=== PATIENT | male | born 1945 | race Hispanic/Latino ===

== ENCOUNTER 2017-12-17 08:58 | Day surgery (SDC) | payer MEDICARE ==
[2017-12-16 13:44] VITALS: BMI 41.2
[2017-12-17 09:43] LABS: BASO # 0.05 K/mm3 (0.0-2.0); BASO % 0.6 % (0.0-3.0); EOS # 0.3 (0.0-0.7); EOS % 4.1 % (1.5-5.0); GRAN # 5.87 (1.4-6.5); GRAN % 72.7 % (50.0-68.0); HEMOGLOBIN 14.6 g/dL (14.0-18.0); LYMPH # 1.1 (1.2-3.4); LYMPH % 13.2 % (22.0-35.0); MEAN CELL VOLUME 94.5 fl (80.0-105.0); MEAN CORPUSCULAR HGB CONC 32.8 g/dl (31.0-37.0); MEAN PLATELET VOLUME 10.1 fl (7.0-11.0); MONO # 0.8 (0.1-0.6); MONO % 9.4 % (1.0-6.0); RBC 4.71 10^6/uL (3.5-6.1); RED CELL DISTRIBUTION WIDTH 13.5 % (11.5-14.5); WHITE BLOOD COUNT 8.1 10^3/ul (4.5-11.0)
[2017-12-17 09:55] LABS: BLOOD UREA NITROGEN 16 mg/dL (7-21); CALCIUM 9.3 mg/dL (8.4-10.5); GFR AFRICAN-AMERICAN > 60; GFR NON-AFRICAN AMERICAN > 60
[2017-12-17 09:59] LABS: INR 1.03 (0.93-1.08); PARTIAL THROMBOPLASTIN TIME 30.7 Seconds (25.1-36.5); PROTHROMBIN TIME 11.8 SECONDS (9.4-12.5)
[2017-12-17] MEDS ORDERED: Lidocaine 2% Inj (20ml) ONE (10:34)
[2017-12-17] MEDS ORDERED: Phenylephrine 10 mg/ml Inj ONE (10:35)
[2017-12-17] MEDS ORDERED: Midazolam 2 MG/2 ML VIAL ONE ×2 (10:36→12:09)
[2017-12-17] MEDS ORDERED: Iodixanol 320 MG/ML 200 ML BOTTLE IV ONE (10:38)
[2017-12-17] MEDS ORDERED: HEPARIN SODIUM/NS 2,000 ML IV ONE (10:38)
[2017-12-17] MEDS ORDERED: Nitroglycerin 50mg in D5W 50 MG/250 ML BOTTLE IV ONE (10:38)
[2017-12-17] MEDS ORDERED: Iodixanol 320 MG/ML 100 ML BOTTLE IV ONE ×2 (10:38→12:46)
[2017-12-17] MEDS ORDERED: Iohexol 350mgl/ml 50 ML ONE (10:38)
[2017-12-17] MEDS ORDERED: Sodium Chloride 0.9% 1,000 ML IV SCH (13:45)
--- NOTE | 2017-12-17 16:55 | CARD ---
APPROVED REPORT EKG Measurement Heart [id number] [place] 204P32 [id number] <Conclusion> Normal sinus rhythm with sinus arrhythmia Anterior infarct, age undetermined Abnormal ECG
--- NOTE | 2017-12-17 17:26 | CARD ---
APPROVED REPORT EKG Measurement Heart [id number] [place] 188P2 [id number] <Conclusion> Normal sinus rhythm Anterolateral infarct, age undetermined Abnormal ECG
--- NOTE | 2017-12-17 23:40 | HP ---
HISTORY OF PRESENT ILLNESS: The patient is a 72 year old man with a past medical history of CAD, hypertension, hyperlipidemia and TAVR who presented for electively scheduled cardiac catheterization after undergoing an abnormal nuclear stress test performed for evaluation of angina. The patient was taken to the cardiac catheterization lab by Dr. Quigley where he underwent successful placement of drug- eluting stent to the proximal LAD lesion. The patient tolerated the procedure without difficulties and was subsequently transferred to the telemetry ayala for continued post cardiac catheterization care. PAST MEDICAL HISTORY: As per HPI. PAST SURGICAL HISTORY: As per HPI. MEDICATIONS: Lipitor 40 mg p.o. daily, Lopressor 25 mg p.o. b.i.d., Metformin 500 mg p.o. b.i.d., Lisinopril/HCTZ 20/12.5 mg p.o. daily, Plavix 75 mg p.o. daily, Aspirin 81 mg p.o. daily and Paxil 20 mg p.o. daily. ALLERGIES: NO KNOWN DRUG ALLERGIES. FAMILY HISTORY: Significant for hypertension and hyperlipidemia. SOCIAL HISTORY: The patient reports a former 40-pack year smoking history. He reports social alcohol use and denies illicit drug abuse. REVIEW OF SYSTEMS: A 14-point review of systems is negative except as per HPI. PHYSICAL EXAMINATION: VITAL SIGNS: Temperature 98.3, pulse 86, blood pressure 144/76, respiratory rate 18 and oxygen saturation 93% on room air. GENERAL: Morbidly obese man, lying in bed, in no apparent distress. HEENT: PERRL. EOMI. No scleral icterus. No conjunctival pallor. NECK: No JVD. No bruits. LUNGS: Clear to auscultation. CARDIOVASCULAR: Regular rate and rhythm. Normal S1 and S2. ABDOMEN: Obese. Normoactive bowel sounds. Soft, nontender and nondistended. EXTREMITIES: No edema. NEUROLOGIC: Awake, alert, and oriented x3. No focal motor deficits. LABORATORY DATA: CBC reviewed and unremarkable. CMP reviewed and unremarkable. ASSESSMENT: The patient is a 72 year old man with multiple medical comorbidities including CAD, hypertension, hyperlipidemia and history of TAVR who presented for electively scheduled cardiac catheterization after undergoing an abnormal nuclear stress test as part of a workup for angina. PLAN: 1. CAD s/p PCI with KRISTEN stent placement x 2. Input from Dr. Quigley noted and greatly appreciated. Continue with post cardiac catheterization care as per Dr. Quigley. Resume aspirin 81 mg p.o. daily, Lipitor 40 mg p.o. daily, metoprolol 25 mg p.o. b.i.d., and Plavix 75 mg p.o. daily. 2. Hypertension, blood pressure controlled. Continue with current medications. 3. Hyperlipidemia. Continue Lipitor 40 mg p.o. daily. 4. Aortic stenosis s/p TAVR. 5. Prophylaxis: GI prophylaxis not indicated as the patient is eating. Continue with SCDs for deep vein thrombosis prophylaxis. CODE STATUS: Full code. Fabricio Spencer MD MTDD
[2017-12-18 00:17] VITALS: RESP 20; O2SAT 96
[2017-12-18 07:22] LABS: BASO # 0.02 K/mm3 (0.0-2.0); BASO % 0.3 % (0.0-3.0); EOS # 0.2 (0.0-0.7); GRAN # 5.54 (1.4-6.5); HEMOGLOBIN 14.3 g/dL (14.0-18.0); LYMPH # 1.2 (1.2-3.4); MEAN CELL VOLUME 92.9 fl (80.0-105.0); MEAN CORPUSCULAR HEMOGLOBIN 30.7 pg (25.0-35.0); MONO # 0.8 (0.1-0.6); MONO % 10.7 % (1.0-6.0); RBC 4.66 10^6/uL (3.5-6.1); RED CELL DISTRIBUTION WIDTH 13.7 % (11.5-14.5); WHITE BLOOD COUNT 7.8 10^3/ul (4.5-11.0)
[2017-12-18 07:42] LABS: BLOOD UREA NITROGEN 14 mg/dL (7-21); CALCIUM 9.3 mg/dL (8.4-10.5); GFR AFRICAN-AMERICAN > 60; GFR NON-AFRICAN AMERICAN > 60
--- NOTE | 2017-12-18 08:54 | CARDCATH ---
CARDIAC CATHETERIZATION AND PERCUTANEOUS TRANSLUMINAL CORONARY ANGIOPLASTY PROCEDURE DATE: 12/17/2017 HISTORY: The patient is a 72-year-old male who presented with progressive exertional shortness of breath and chest pain where symptoms occur after taking 4 to 5 steps. The patient has a history of TAVR as well as PTCA and stent. He also suffers from diabetes mellitus, morbid obesity, and hypercholesterolemia. He has been completely sedentary since his angioplasty a year ago. Because of this, cardiac catheterization was recommended. PROCEDURE: Left heart catheterization with coronary arteriography and left ventriculogram followed by percutaneous transluminal coronary angioplasty and stent of two areas of the left anterior descending. Right femoral artery was cannulated with 6-Korean sheaths. There are no complications. I performed moderate sedation, which included the presence of an independent trained observer that assisted in monitoring the patient's level of consciousness and physiologic status. After administration of Versed and fentanyl, my intra-service time was greater than 30 minutes. The findings on catheterization, which included supra-aortic valvular injection. There was no AI across the TAVR valve. His coronary anatomy revealed a left dominant system. The RCA was a small vessel and revealed diffuse atherosclerosis without critical lesions. The left main artery was unremarkable. The LAD revealed a 90% in-stent restenosis in the proximal portion and involved a critical lesion in the proximal portion of the septal engineering and development director. In the midportion of the LAD, there is a long 90% stenosis noted. The diagonal vessels revealed diffuse atherosclerosis without critical lesions. The patient was started on intravenous Angiomax. On the fluoroscopic guide, the guiding catheter was placed in the ostium of the LAD. Balloon angioplasty was performed on the proximal portion of the septal engineering and development director with a 2.0 balloon x2 with a good result. Four stents were placed in the LAD, 2 x 3.0 drug-eluting stents were placed in the proximal LAD overlapping the in-stent restenosis, and 2.5 x 15 mm drug-eluting stents were placed in the midportion of the LAD. Repeat coronary arteriography revealed an excellent result with no residual stenosis and NORY-III flow. The patient tolerated the procedure well. Angio-Seal was used to close the femoral artery site. In summary, the procedure was successful PTCA and stent of a two 90% lesions in the LAD, one in the proximal portion, which represents in-stent restenosis as well as a new de jovan lesion in the mid LAD with drug-eluting stents. Cardiac catheterization reveals the LAD stenoses as well as no AI across the aortic valve. Given these findings, I have discussed with the patient's family about his need to continue aspirin indefinitely and Plavix for least a year and he needs to undergo a strict cardiac risk reduction program. Alonso Quigley MD
--- NOTE | 2017-12-18 10:29 | PN ---
SUBJECTIVE: The patient was seen and examined at bedside on the telemetry ayala. No acute events overnight. He remains afebrile, hemodynamically stable and chest pain free after his cardiac catheterization with placement of KRISTEN stents x 2 to the LAD lesions. This morning he feels great, offers no complaints and is anticipating discharge home. OBJECTIVE: VITAL SIGNS: Temperature of 98.4, pulse of 68, blood pressure of 149/84, respiratory rate of 20, and oxygen saturations of 96% on room air. GENERAL: No apparent distress. HEENT: PERRL. EOMI. No scleral icterus. No conjunctival pallor. NECK: No JVD and no bruits. LUNGS: Clear to auscultation. CARDIOVASCULAR: Regular rate and rhythm. Normal S1 and S2. ABDOMEN: Normoactive bowel sounds. Soft, nontender, and nondistended. EXTREMITIES: No edema. Cardiac catheterization site appears clean, dry and intact. NEUROLOGIC: Awake, alert, and oriented x3. No focal motor deficits. LABORATORY DATA: CBC reviewed and unremarkable. BMP reviewed and unremarkable. ASSESSMENT: The patient is a 72 year old man with multiple medical comorbidities including CAD, hypertension, hyperlipidemia and history of TAVR who presented for electively scheduled cardiac catheterization after undergoing an abnormal nuclear stress test as part of a workup for angina. PLAN: 1. CAD s/p PCI with KRISTEN stent placement x 2. Continue Aspirin 81 mg p.o. daily , Lipitor 40 mg p.o. daily, Metoprolol 25 mg p.o. b.i.d., and Plavix 75 mg p.o. daily. The patient has been extensively counseled on the need for lifestyle modifications and the need to enroll in a cardiac risk reduction program. The patient was advised to adhere to post cardiac catheterization instructions as per Dr. Quigley. 2. Hypertension. Blood pressure controlled. Continue current medications. 3. Hyperlipidemia. Continue Lipitor 40 mg p.o. daily. 4. Aortic stenosis, status post TAVR. 5. Type 2 diabetes mellitus. Continue Metformin 500 mg p.o. b.i.d. 6. Prophylaxis, GI prophylaxis not indicated as the patient is eating. DVT prophylaxis is not indicated, as the patient is ambulatory. 7. Disposition. The patient will be discharged to home today. CODE STATUS: Full Code. Fabricio Spencer MD ISABELLA
[2017-12-18 12:13] VITALS: BP 142/78; PULSE 68; TEMP 98.3
--- NOTE | 2017-12-18 18:31 | PN ---
DATE: 12/18/2017 CARDIOLOGY FOLLOWUP SUBJECTIVE: The patient is asymptomatic. PHYSICAL EXAMINATION: VITAL SIGNS: Blood pressure 142/78, heart rate in the 60s. NECK: Negative JVD. LUNGS: Without rales. HEART: Reveals S1, S2 with 2/6 systolic ejection murmur. EXTREMITIES: Without edema. LABORATORY: Creatinine is unchanged of 0.7. Hemoglobin is stable. IMPRESSION: 1. Status post percutaneous transluminal coronary angioplasty and stent of two lesions in the left anterior descending. 2. History of transcatheter aortic valve replacement. 3. Coronary artery disease. Given these findings, the patient is stable for discharge. I have discussed with the patient about the need for aspirin and Plavix, the Plavix for least a year and undergo a strict cardiac risk reduction program. Alonso Quigley MD
== END 2017-12-18 13:50 | disposition home or self-care (01) ==
LOC: CATH 08:58 → 2RSO 13:48 → CATH 12-18 13:50
PROVIDERS: ATTEND Internal Medicine Cardiovascular Disease
DX: I25.119 Atherosclerotic heart disease of native coronary artery with unspecified angina pectoris (principal); T82.855A Stenosis of coronary artery stent, initial encounter; I10 Essential (primary) hypertension; E78.00 Pure hypercholesterolemia, unspecified; E11.9 Type 2 diabetes mellitus without complications; Y83.8 Other surgical procedures as the cause of abnormal reaction of the patient, or of later complication, without mention of misadventure at the time of the procedure; E66.01 Morbid (severe) obesity due to excess calories; Z68.41 Body mass index [BMI] 40.0-44.9, adult; Z95.2 Presence of prosthetic heart valve; Z79.84 Long term (current) use of oral hypoglycemic drugs; Z87.891 Personal history of nicotine dependence; Z79.82 Long term (current) use of aspirin
CPT/HCPCS: 36415 ×2; 80048 ×2; 82948; 85025 ×2; 85576; 85610; 85730; 86850; 86900; 93005; 93454; 93567; 99152; 99153; C1725 ×2; C1760; C1769 ×2; C1874 ×4; C1887; C2629; C9600; J0583; J1644; J2250; J3010; J7030; J7040; Q9967 ×2

== ENCOUNTER 2018-07-30 11:10 | Day surgery (SDC) | payer MEDICARE ==
[2018-07-24 13:17] VITALS: BMI 41.5
[2018-07-30 12:30] LABS: BASO # 0.05 K/mm3 (0.0-2.0); BASO % 0.6 % (0.0-3.0); EOS # 0.3 (0.0-0.7); EOS % 3.6 % (1.5-5.0); GRAN # 5.76 (1.4-6.5); GRAN % 71.4 % (50.0-68.0); HEMOGLOBIN 14.9 g/dL (14.0-18.0); LYMPH # 1.4 (1.2-3.4); LYMPH % 17.8 % (22.0-35.0); MEAN CELL VOLUME 91.6 fl (80.0-105.0); MEAN CORPUSCULAR HEMOGLOBIN 31.3 pg (25.0-35.0); MEAN CORPUSCULAR HGB CONC 34.2 g/dl (31.0-37.0); MEAN PLATELET VOLUME 10.1 fl (7.0-11.0); MONO # 0.5 (0.1-0.6); MONO % 6.6 % (1.0-6.0); RBC 4.76 10^6/uL (3.5-6.1); RED CELL DISTRIBUTION WIDTH 13.1 % (11.5-14.5); WHITE BLOOD COUNT 8.1 10^3/ul (4.5-11.0)
[2018-07-30 12:33] LABS: INR 1.06; PARTIAL THROMBOPLASTIN TIME 32.1 Seconds (25.1-36.5); PROTHROMBIN TIME 12.2 SECONDS (9.4-12.5)
[2018-07-30 12:35] LABS: BLOOD UREA NITROGEN 18 mg/dL (7-21); CALCIUM 9.5 mg/dL (8.4-10.5); GFR NON-AFRICAN AMERICAN > 60; HDL CHOLESTEROL 36 mg/dL (29-60)
[2018-07-30 12:46] LABS: LDL CHOLESTEROL 90 mg/dL (0-129)
[2018-07-30] MEDS ORDERED: Phenylephrine 10 mg/ml Inj ONE (13:12)
[2018-07-30] MEDS ORDERED: Midazolam 2 MG/2 ML VIAL ONE ×3 (13:12→14:04)
[2018-07-30] MEDS ORDERED: Iodixanol 320 MG/ML 100 ML BOTTLE IV ONE (13:13)
[2018-07-30] MEDS ORDERED: Iodixanol 320 MG/ML 200 ML BOTTLE IV ONE (13:13)
[2018-07-30] MEDS ORDERED: Iohexol 350mgl/ml 50 ML ONE (13:13)
[2018-07-30] MEDS ORDERED: Nitroglycerin 50mg in D5W 50 MG/250 ML BOTTLE IV ONE (14:23)
--- NOTE | 2018-07-30 15:19 | CARD ---
APPROVED REPORT Date of service: 07/30/2018 EKG Measurement Heart [id number] [place] 128P7 [id number] <Conclusion> Sinus rhythm with marked sinus arrhythmia Minimal voltage criteria for LVH, may be normal variant Anterior infarct, age undetermined Possible Lateral infarct, age undetermined Abnormal ECG
[2018-07-30] MEDS ORDERED: Sodium Chloride 0.9% 1,000 ML IV SCH (15:30)
--- NOTE | 2018-07-30 15:45 | CARDCATH ---
Copied To: Alonso Quigley MD Attending MD: Alonso Quigley MD PROCEDURE DATE: 07/30/2018 CARDIAC CATHETERIZATION AND PTCA HISTORY: The patient is a 73-year-old male, who presents with an abnormal stress test, which revealed deterioration of his left ventricle after he underwent multiple procedures including TAVR as well as PTCA and stent of an LAD. Because of his ischemic changes and deterioration of his LV, a cardiac catheterization was recommended. The patient has been noncompliant with his diet, medications as well as medical advice and has gained over 20 pounds since his cardiac procedures. PROCEDURE: Left heart catheterization with coronary arteriography, supra-aortic valvular injection, followed by percutaneous transluminal coronary angioplasty and stent of an occluded left anterior descending. The right femoral artery was cannulated with a 6-German sheath, which was then exchanged to a 7-German sheath. There were no complications. I performed moderate sedation, which included the presence of an independent trained observer that assisted in monitoring the patient's level of consciousness and physiologic status. After administration of Versed and fentanyl, my intra service time was 45 minutes. The findings on catheterization revealed no aortic insufficiency and supra-aortic valvular injection. The right RCA was a small vessel and nondominant vessel, which revealed a 50% stenosis in its proximal portion. The left main artery was unremarkable. The circumflex artery and obtuse marginal branches revealed diffuse atherosclerosis without critical lesions. The LAD stent was subtotally occluded in its proximal portion. The patient was started on intravenous Angiomax on the fluoroscopic guide, the guiding catheter was placed in the ostium of the left main artery. An 0.014 ATW wire was used to cross the subtotally occluded LAD and was found to have diffuse disease throughout the vessel. A 2 balloon was utilized to dilate the length of the entire LAD. This was followed by dilatation with a 2.5 balloon. Three stents were placed in the LAD, one in the proximal in-stent restenosis with a 3 x 30 mm drug-eluting stent. The midportion was stented with a 2.5 drug-eluting stent with distal to that a 2.25 stent, all were drug-eluting stents. Repeat coronary arteriography revealed sikh of flow down the LAD with good flow. No critical lesions noted. An 8-German Angio-Seal was used to close the femoral artery site. There was bleeding from the groin site after Angio-Seal placement, which was treated with manual compression. The patient tolerated the procedure well. In summary, the procedure was successful PTCA and stent of a subtotally occluded LAD with a diffusely diseased LAD with implantation of three drug-eluting stents. Cardiac catheterization revealed no aortic insufficiency. Given these findings, the patient will need to remain on aspirin and Plavix for at least a year (PRU was measured and the patient was found to have therapeutic Plavix inhibition). The patient's noncompliance will be addressed again. He needs to lose weight and undergo a strict cardiac risk reduction program, which needs to include exercise program. Alonso Quigley MD
--- NOTE | 2018-07-30 22:16 | CARD ---
APPROVED REPORT Date of service: 07/30/2018 EKG Measurement Heart [id number] [place] 198P28 [id number] <Conclusion> Normal sinus rhythm Septal infarct, age undetermined Abnormal ECG
[2018-07-31 02:03] VITALS: RESP 19
[2018-07-31 06:29] VITALS: BP 149/77; TEMP 98.3; O2SAT 96
[2018-07-31 07:39] LABS: BASO # 0.03 K/mm3 (0.0-2.0); BASO % 0.3 % (0.0-3.0); EOS # 0.4 (0.0-0.7); EOS % 4.7 % (1.5-5.0); GRAN # 6.5 (1.4-6.5); GRAN % 70.3 % (50.0-68.0); HEMOGLOBIN 13.3 g/dL (14.0-18.0); LYMPH # 1.5 (1.2-3.4); LYMPH % 16.5 % (22.0-35.0); MEAN CELL VOLUME 92.4 fl (80.0-105.0); MEAN CORPUSCULAR HEMOGLOBIN 30.4 pg (25.0-35.0); MEAN CORPUSCULAR HGB CONC 32.9 g/dl (31.0-37.0); MONO # 0.8 (0.1-0.6); MONO % 8.2 % (1.0-6.0); RBC 4.37 10^6/uL (3.5-6.1); RED CELL DISTRIBUTION WIDTH 13.2 % (11.5-14.5); WHITE BLOOD COUNT 9.2 10^3/ul (4.5-11.0)
[2018-07-31 08:14] LABS: BLOOD UREA NITROGEN 15 mg/dL (7-21); CALCIUM 8.7 mg/dL (8.4-10.5); GFR NON-AFRICAN AMERICAN > 60
--- NOTE | 2018-07-31 08:59 | HP ---
HISTORY OF PRESENT ILLNESS: The patient is a 73-year-old man with a past medical history of CAD, hypertension, hyperlipidemia and type 2 diabetes mellitus who presented for electively scheduled cardiac catheterization after undergoing an abnormal nuclear stress test. The patient was taken to the cardiac catheterization lab with Dr. Quigley where he underwent successful PCI with placement of 3 drug- eluting stents to the diffusely diseased LAD. The patient tolerated the procedure well and no postprocedure complications were noted. This morning he feels well, offers no complaints and is looking forward to discharge home. PAST MEDICAL HISTORY: As per HPI, also morbid obesity, anxiety and history of aortic stenosis s/p TAVR. PAST SURGICAL HISTORY: TAVR. ALLERGIES: NKDA. MEDICATIONS: Aspirin 81 mg p.o. daily, Plavix 75 mg p.o. daily, Lipitor 40 mg p.o. daily, Lopressor 25 mg p.o. b.i.d., Lisinopril/HCTZ 20/25 mg p.o. daily, Paxil 20 mg p.o. daily and Metformin 500 mg p.o. b.i.d. FAMILY HISTORY: Significant for hypertension and hyperlipidemia. SOCIAL HISTORY: The patient reports a former 40 pack-year smoking history. He reports social alcohol use and denies illicit drug abuse. REVIEW OF SYSTEMS: A 12-point review of systems is negative except as per HPI. PHYSICAL EXAMINATION: VITAL SIGNS: Temperature 98.3, pulse 88, blood pressure 149/77, respiratory rate 19, oxygen saturation 96% on room air. GENERAL: Morbidly obese man, sitting up in bed, in no apparent distress. HEENT: PERRL, EOMI. No scleral icterus. No conjunctival pallor. NECK: No JVD. No bruits. LUNGS: Clear to auscultation. CARDIOVASCULAR: Regular rate and rhythm. Normal S1 and S2. ABDOMEN: Obese. Normoactive bowel sounds. Soft, nontender and nondistended. EXTREMITIES: No edema. Cardiac catheterization site appears clean, dry and intact with no femoral bruit or hematoma. NEUROLOGIC: Awake, alert and oriented x 3. No focal motor deficits. LABORATORY DATA: CBC reviewed and unremarkable. CMP pending. ASSESSMENT: The patient is a 73-year-old man with multiple medical comorbidities including CAD, hypertension, hyperlipidemia, type 2 diabetes mellitus and morbid obesity who presented for electively scheduled cardiac catheterization after undergoing an abnormal nuclear stress test and who is now s/p PCI with KRISTEN stent placement x 3 to the diffusely diseased LAD. PLAN: 1. CAD s/p PCI with KRISTEN stent placement x 3. Input from Dr. Quigley noted and greatly appreciated. Continue with post cardiac catheterization care as per Dr. Quigley. The patient was again counseled on lifestyle modifications and the need for weight reduction. He will also be enrolled in a cardiac risk reduction program. Continue Aspirin 81 mg p.o. daily, Plavix 75 mg p.o. daily, Lipitor 40 mg p.o. daily and Metoprolol 25 mg p.o. b.i.d. 2. Hypertension. Blood pressure controlled. Continue with current medications. 3. Hyperlipidemia. Continue Lipitor 40 mg p.o. daily. 4. Type 2 diabetes mellitus. The patient has been counseled on lifestyle modifications and will resume his outpatient oral glycemic agents on discharge. 6. Morbid obesity. As above, the patient has been counseled on lifestyle modifications and has been encouraged to enroll in a cardiac risk reduction program. 7. Aortic stenosis s/p TAVR. 8. Prophylaxis. GI prophylaxis is not indicated as the patient is eating. DVT prophylaxis is not indicated as the patient is ambulatory. CODE STATUS: Full code. Fabricio Spencer MD MTDD
[2018-07-31 10:56] VITALS: PULSE 77
--- NOTE | 2018-07-31 12:52 | PN ---
DATE: 07/31/2018 SUBJECTIVE: The patient is sitting in a chair, free of chest pain, free of shortness of breath. PHYSICAL EXAMINATION: VITAL SIGNS: On physical exam, blood pressure is 149/77, heart rates in the 80s. NECK: Negative JVD. LUNGS: Without rales. HEART: S1, S2, has soft systolic ejection murmur. EXTREMITIES: Without edema. LABORATORY DATA: Hemoglobin is 13.3. Chemistries, BUN and creatinine unremarkable. Glucose 149. IMPRESSION: 1. Status post percutaneous transluminal coronary angioplasty and stent of subtotally occluded left anterior descending. 2. History of transcatheter aortic valve replacement. 3. Diabetes mellitus. 4. Morbid obesity. 5. Hypercholesterolemia. 6. Noncompliance with a cardiac risk reduction program. Given these findings, I have discussed in a very serious way with the patient of consequences of his noncompliance. I have discussed the need to change his life and change the diet. Weight loss is essential. He will continue on aspirin and Plavix. Follow up instructions have been given to the patient in detail. Alonso Quigley MD
== END 2018-07-31 12:25 | disposition home or self-care (01) ==
LOC: SDSVAS 11:10 → 2RSO 16:08 → SDSVAS 07-31 12:25
PROVIDERS: ATTEND Internal Medicine Cardiovascular Disease
DX: T82.858A Stenosis of other vascular prosthetic devices, implants and grafts, initial encounter (principal); Y84.8 Other medical procedures as the cause of abnormal reaction of the patient, or of later complication, without mention of misadventure at the time of the procedure; Z91.14 Patient's other noncompliance with medication regimen; Z91.11 Patient's noncompliance with dietary regimen; Z91.19 Patient's noncompliance with other medical treatment and regimen; Z95.5 Presence of coronary angioplasty implant and graft
CPT/HCPCS: 36415; 80048; 80061; 82948; 85025; 85576; 85610; 85730; 86850; 86900; 93005; 93454; 99152; 99153; C1725 ×4; C1760; C1769 ×3; C1874 ×3; C1887; C1894; C2629; C9600; J0583; J1644; J2250; J3010; J7030; Q9966; Q9967 ×2

== ENCOUNTER 2018-09-12 19:19 | Emergency (ER) | payer MEDICARE ==
[2018-09-12 19:20] VITALS: BMI 40.1
--- NOTE | 2018-09-12 19:56 | ED PDOC ---
Arrival/HPI - General Chief Complaint: ENT Problem Time Seen by Provider: 09/12/18 19:56 Historian: Patient - History of Present Illness Narrative History of Present Illness (Text): 09/12/18 20:30 73 year old male, with no significant past medical history, who presents to the ED complaining of 2 episodes of epistaxis today. Patient states around 03:30 this morning, he sneezed, blew his nose and noticed his nose started bleeding. Patient states the nose bleed lasted half an hour. Patient states again at 17:50 tonight, he sneezed again, blew his nose and began experiencing a nose bleed. Patient states the bleeding didn't stop. Patient denies any fever, chills, SOB, back pain, headache, dizziness, neck pain, abdominal pain, or any other complaints. Time/Duration: 24 hours Symptom Onset: Gradual Symptom Course: Unchanged Activities at Onset: Light Context: Home Past Medical History - Provider Review Nursing Documentation Reviewed: Yes - Infectious Disease Hx of Infectious Diseases: None - Cardiac Hx Hypertension: Yes - Neurological Hx Paralysis: No - Hematological/Oncological Hx Blood Transfusions: No Hx Blood Transfusion Reaction: No - Musculoskeletal/Rheumatological Hx Musculoskeletal Disorders: Yes - Psychiatric Hx Emotional Abuse: No Hx Physical Abuse: No Hx Substance Use: No - Surgical History Hx Cardiac Catheterization: Yes (unsure of # of stents) Hx Coronary Stent: Yes - Anesthesia Hx Anesthesia: Yes Hx Anesthesia Reactions: Yes (30 YRS AGO-WOKE UP DURING SX) Hx Malignant Hyperthermia: No - Suicidal Assessment Feels Threatened In Home Enviroment: No Family/Social History - Physician Review Nursing Documentation Reviewed: Yes Family/Social History: Unknown Family HX Smoking Status: Never Smoked Hx Alcohol Use: Yes (BEER ON & OFF) Frequency of alcohol use: Socially Hx Substance Use: No Allergies/Home Meds Allergies/Adverse Reactions: Allergies No Known Allergies Allergy (Verified 09/12/18 19:48) Home Medications: Home Meds Medication Instructions Recorded Confirmed RX: Aspirin 81 mg PO QAM 12/18/17 09/12/18 RX: Atorvastatin [Lipitor] 80 mg PO QAM 07/24/18 09/12/18 RX: Cholecalciferol (Vitamin D3) 2,000 unit PO DAILY 07/24/18 09/12/18 [D3 Dots] RX: Clopidogrel [Plavix] 75 mg PO QAM 07/24/18 09/12/18 RX: Furosemide [Lasix] 20 mg PO QAM 07/24/18 09/12/18 RX: GlipiZIDE [Glucotrol] 5 mg PO BID 07/24/18 09/12/18 RX: MetFORMIN [glucoPHAGE] 1,000 mg PO BID 07/24/18 09/12/18 Lisinopril/Hydrochlorothiazide 1 each PO DAILY 09/12/18 09/12/18 [Lisinopril-Hctz 20-12.5 mg Tab] Review of Systems - Physician Review All systems were reviewed & negative as marked: Yes - Review of Systems Constitutional: Normal Eyes: Normal ENT: Epistaxis Respiratory: Normal. absent: SOB, Cough Cardiovascular: Normal. absent: Chest Pain Gastrointestinal: Normal. absent: Abdominal Pain, Diarrhea, Nausea, Vomiting Genitourinary Male: Normal Musculoskeletal: Normal. absent: Back Pain, Neck Pain Skin: Normal. absent: Rash Neurological: Normal. absent: Headache, Dizziness Endocrine: Normal Hemo/Lymphatic: Normal Psychiatric: Normal Physical Exam Vital Signs Reviewed: Yes Vital Signs Temp Pulse Resp BP Pulse Ox 09/12/18 19:41 97.5 F L 83 19 179/80 H 96 Temperature: Afebrile Blood Pressure: Hypertensive Pulse: Regular Respiratory Rate: Normal Appearance: Positive for: Well-Appearing, Non-Toxic, Comfortable Pain Distress: None Mental Status: Positive for: Alert and Oriented X 3 - Systems Exam Head: Present: Atraumatic, Normocephalic Pupils: Present: PERRL Extroacular Muscles: Present: EOMI Conjunctiva: Present: Normal Mouth: Present: Moist Mucous Membranes Pharnyx: Present: Other (blood on posterior pharynx ) Nose (External): Present: Atraumatic Nose (Internal): Present: Epistaxis (rt side of septum oozing) Neck: Present: Normal Range of Motion Neurological: Present: GCS=15, CN II-XII Intact, Speech Normal Skin: Present: Warm, Dry, Normal Color Psychiatric: Present: Alert, Oriented x 3 Medical Decision Making ED Course and Treatment: 09/12/18 20:37 Impression: 73 year old male presents to the ED complaining of 2 episodes of epistaxis today. Plan: -- Amoxicillin -- Rhino Rocket -- reassess and disposition Progress Notes: Pt evaluated. Patient told to blow nose, blew out a clot and blood oozing from the rt nasal septum was noted. Pt told to hold pressure for 15 minutes and will be re-evaluated after. 09/12/18 20:56 PROCEDURE: EPISTAXIS MANAGEMENT Performed by the emergency provider Consent: Informed consent was obtained after discussion of the risks, benefits, and alternatives to the procedure. Timeout: A timeout to verify the correct patient, procedure, and site was performed immediately prior to the procedure. Indication: Nasal bleeding control Location: right naris Medication: Amoxicillin Bleeding Source: Right Septum Packing: Rhini Rocket 7.5 Post-procedure: Good hemostasis. The patient was observed following procedure and no repeat episode of bleeding was noted. Patient tolerated the procedure well with no immediate complications. 09/12/18 21:05 S/p rhino rocket placement, pt observed in ED for 30 minutes. No bleeding was noted. Pt to f/u in ED in 2 days for packing removal. Patient states he is feeling better and would like to go home. Patient is very well appearing and non-toxic. Vital signs are stable. I discussed the results of the work-up, diagnosis and treatment. Written discharge instructions were provided to patient. Additional verbal instructions were given and discussed with patient. We discussed the importance of returning to the ED for packing removal in 2 days. I also reiterated reasons to immediately return to the ER including: worsening in current symptoms and/or new or concerning symptoms. Pt understood and agreed. - Scribe Statement The provider has reviewed the documentation as recorded by the Scribe Anika Archer All medical record entries made by the Scribe were at my direction and personally dictated by me. I have reviewed the chart and agree that the record accurately reflects my personal performance of the history, physical exam, medical decision making, and the department course for this patient. I have also personally directed, reviewed, and agree with the discharge instructions and disposition. Disposition/Present on Arrival - Present on Arrival Any Indicators Present on Arrival: No History of DVT/PE: No History of Uncontrolled Diabetes: No Urinary Catheter: No History of Decub. Ulcer: No History Surgical Site Infection Following: None - Disposition Have Diagnosis and Disposition been Completed?: Yes Diagnosis: Epistaxis Disposition: HOME/ ROUTINE Disposition Time: 21:08 Patient Plan: Discharge Condition: STABLE Discharge Instructions (ExitCare): Nosebleeds (DC) Additional Instructions: YANCI J SARA, thank you for letting us take care of you today. Your provider was Corine Elizabeth MD and you were treated for NOSE BLEED. The emergency medical care you received today was directed at your acute symptoms. If you were prescribed any medication, please fill it and take as directed. It may take several days for your symptoms to resolve. Return to the Emergency Department if your symptoms worsen, do not improve, or if you have any other problems. Please return to the Emergency Department on September 14 for nasal packing removal. Bring any paperwork you were given at discharge with you along with any medications you are taking to your follow up visit. Our treatment cannot replace ongoing medical care by a primary care provider outside of the emergency department. Thank you for allowing the [facility] team to be part of your care today. Prescriptions: RX: Amoxicillin [Amoxil 500 mg Cap] 500 mg PO TID #21 cap Forms: [employer] ([place]ian)
[2018-09-12 20:26] VITALS: O2SAT 96
[2018-09-12 21:27] VITALS: BP 174/76; PULSE 74; RESP 18; TEMP 97.6
== END 2018-09-12 21:45 | disposition home or self-care (01) ==
LOC: ED 19:19
DX: R04.0 Epistaxis (principal); I10 Essential (primary) hypertension

== ENCOUNTER 2018-09-14 18:13 | Emergency (ER) | payer MEDICARE ==
[2018-09-14 18:13] VITALS: BMI 40.1
[2018-09-14 18:35] VITALS: RESP 18
--- NOTE | 2018-09-14 18:41 | ED PDOC ---
Arrival/HPI - General Chief Complaint: ENT Problem Time Seen by Provider: 09/14/18 18:33 Historian: Patient - History of Present Illness Narrative History of Present Illness (Text): 09/14/18 18:37 73yo male with pmhx of Diabetes and hypertension who present to ED for packing removal from his right nares. Notes that packing was placed here two days ago and he was advised to return to ED today for the packing removal. He denies fever, headache, chills, dizziness, any other complaint. He is on Amoxicillin. Past Medical History - Provider Review Nursing Documentation Reviewed: Yes - Infectious Disease Hx of Infectious Diseases: None - Cardiac Hx Hypertension: Yes - Neurological Hx Paralysis: No - Hematological/Oncological Hx Blood Transfusions: No Hx Blood Transfusion Reaction: No - Musculoskeletal/Rheumatological Hx Musculoskeletal Disorders: Yes - Psychiatric Hx Emotional Abuse: No Hx Physical Abuse: No Hx Substance Use: No - Surgical History Hx Cardiac Catheterization: Yes (unsure of # of stents) Hx Coronary Stent: Yes - Anesthesia Hx Anesthesia: Yes Hx Anesthesia Reactions: Yes (30 YRS AGO-WOKE UP DURING SX) Hx Malignant Hyperthermia: No - Suicidal Assessment Feels Threatened In Home Enviroment: No Family/Social History - Physician Review Nursing Documentation Reviewed: Yes Family/Social History: Unknown Family HX Smoking Status: Never Smoked Hx Alcohol Use: Yes (BEER ON & OFF) Hx Substance Use: No Allergies/Home Meds Allergies/Adverse Reactions: Allergies No Known Allergies Allergy (Verified 09/14/18 18:32) Home Medications: Home Meds Medication Instructions Recorded Confirmed Aspirin 81 mg PO QAM 12/18/17 09/14/18 Atorvastatin [Lipitor] 80 mg PO QAM 07/24/18 09/14/18 Cholecalciferol (Vitamin D3) [D3 2,000 unit PO DAILY 07/24/18 09/14/18 Dots] Clopidogrel [Plavix] 75 mg PO QAM 07/24/18 09/14/18 Furosemide [Lasix] 20 mg PO QAM 07/24/18 09/14/18 GlipiZIDE [Glucotrol] 5 mg PO BID 07/24/18 09/14/18 MetFORMIN [glucoPHAGE] 1,000 mg PO BID 07/24/18 09/14/18 Lisinopril/Hydrochlorothiazide 1 each PO DAILY 10/19/18 10/21/18 [Lisinopril-Hctz 20-12.5 mg Tab] Review of Systems - Physician Review All systems were reviewed & negative as marked: Yes - Review of Systems Constitutional: Normal Eyes: Normal ENT: Other (Nasal packing removal) Respiratory: Normal Cardiovascular: Normal Gastrointestinal: Normal Genitourinary Male: Normal Musculoskeletal: Normal Skin: Normal Neurological: Normal Endocrine: Normal Hemo/Lymphatic: Normal Psychiatric: Normal Physical Exam Vital Signs Reviewed: Yes Vital Signs Temp Pulse Resp BP Pulse Ox 09/14/18 18:30 97.9 F 87 18 169/78 H 95 Temperature: Afebrile Blood Pressure: Normal Pulse: Regular Respiratory Rate: Normal Appearance: Positive for: Well-Appearing, Non-Toxic, Comfortable Pain Distress: None Mental Status: Positive for: Alert and Oriented X 3 - Systems Exam Head: Present: Atraumatic, Normocephalic Pupils: Present: PERRL Extroacular Muscles: Present: EOMI Conjunctiva: Present: Normal Mouth: Present: Moist Mucous Membranes Nose (Internal): Present: Other (Packing noted in place to right nares) Neck: Present: Normal Range of Motion Respiratory/Chest: Present: Clear to Auscultation, Good Air Exchange. No: Respiratory Distress, Accessory Muscle Use Cardiovascular: Present: Regular Rate and Rhythm, Normal S1, S2. No: Murmurs Abdomen: No: Tenderness, Distention, Peritoneal Signs Back: Present: Normal Inspection Upper Extremity: Present: Normal Inspection. No: Cyanosis, Edema Lower Extremity: Present: Normal Inspection. No: Edema Neurological: Present: GCS=15, CN II-XII Intact, Speech Normal Skin: Present: Warm, Dry, Normal Color. No: Rashes Psychiatric: Present: Alert, Oriented x 3, Normal Insight, Normal Concentration Medical Decision Making ED Course and Treatment: 09/14/18 19:25 Pt in ED for nasal packing removal. Packing was placed here 2days ago. He states he have not had nose bleed since the packing was placed. He is on amoxicillin. Nasal packing was removed in ED and no active bleeding was noted. Pt advised not to blow his nose Referred to ENT Disposition/Present on Arrival - Present on Arrival Any Indicators Present on Arrival: No History of DVT/PE: No History of Uncontrolled Diabetes: No Urinary Catheter: No History of Decub. Ulcer: No History Surgical Site Infection Following: None - Disposition Have Diagnosis and Disposition been Completed?: Yes Diagnosis: Encounter for removal of nasal packing Disposition: HOME/ ROUTINE Disposition Time: 18:50 Patient Plan: Discharge Patient Problems: Current Active Problems Problem Status Onset Encounter for removal of nasal packing Acute Condition: STABLE Additional Instructions: Follow up with your Doctor/ENT Return to ED for new symptoms Referrals: Myra Baker MD [Staff Provider] - Follow up with primary Forms: [employer] ([place]ian)
[2018-09-14 19:50] VITALS: BP 165/77; PULSE 85; TEMP 98; O2SAT 96
== END 2018-09-14 19:20 | disposition home or self-care (01) ==
LOC: ED 18:13
DX: Z48.00 Encounter for change or removal of nonsurgical wound dressing (principal); E11.9 Type 2 diabetes mellitus without complications; I10 Essential (primary) hypertension

== ENCOUNTER 2019-01-14 07:54 | Outpatient (CLI) | payer MEDICARE | END 2019-01-14 07:55 | disposition home or self-care (01) | LOC: RAD 07:54 ==

== ENCOUNTER 2019-02-04 07:30 | Outpatient (CLI) | payer MEDICARE | END 2019-02-04 07:31 | disposition home or self-care (01) | LOC: RAD 07:30 ==

== ENCOUNTER 2019-02-27 11:30 | Outpatient (CLI) | payer MEDICARE | END 2019-02-27 11:31 | disposition home or self-care (01) | LOC: RAD 11:30 ==